=== PATIENT | male | born 1955 | race Caucasian/White ===

== ENCOUNTER 2016-09-30 12:14 | Outpatient (CLI) | payer BC | END 2016-09-30 12:15 | disposition home or self-care (01) | DX: G50.0 Trigeminal neuralgia (principal) ==

== ENCOUNTER 2018-12-15 09:33 | Outpatient (CLI) | payer OTHER ==
[2018-12-15 09:53] LABS: BASOPHILS % (AUTO) 0.9 %; EOSINOPHILS # (AUTO) 0.2 10^3/uL (0.0-0.7); EOSINOPHILS % (AUTO) 3.6 %; HGB - HEMOGLOBIN 14.2 g/dL (14.0-18.0); LYMPHOCYTES # (AUTO) 1.8 10^3/uL (1.5-3.5); LYMPHOCYTES % (AUTO) 32.2 %; MEAN CORPUSCULAR HEMOGLOBIN 28.6 pg (27.0-31.0); MEAN CORPUSCULAR HGB CONC 32.9 g/dL (32.0-36.0); MEAN PLATELET VOLUME 7.6 fL (7.4-11.4); MONOCYTES # (AUTO) 0.6 10^3/uL (0.0-1.0); MONOCYTES % (AUTO) 10.4 %; NEUTROPHILS # (AUTO) 2.9 10^3/uL (1.5-6.6); NEUTROPHILS % (AUTO) 52.9 %; PLT - PLATELET COUNT 210 10^3/uL (130-450); RED BLOOD COUNT 4.97 10^6/uL (4.70-6.10); RED CELL DISTRIBUTION WIDTH 13.8 % (12.0-15.0); WHITE BLOOD COUNT 5.5 x10^3/uL (4.8-10.8)
[2018-12-15 10:11] LABS: ALBUMIN 3.9 g/dL (3.2-5.5); ALBUMIN/GLOBULIN RATIO 1.2 (1.0-2.2); ALKALINE PHOSPHATASE 54 IU/L (42-121); ALT ALANINE AMINOTRANSFERASE 22 IU/L (10-60); AST ASPARTATE AMINOTRANSFERASE 18 IU/L (10-42); BILIRUBIN,TOTAL 0.8 mg/dL (0.2-1.0); BUN - BLOOD UREA NITROGEN 19 mg/dL (6-20); CALCIUM 9.3 mg/dL (8.5-10.3); CARBON DIOXIDE - CO2 28 mmol/L (21-32); CHLORIDE 102 mmol/L (101-111); CHOL/HDL RATIO 4.7 (<5.0); CHOLESTEROL 257 mg/dL; CREATININE 1.1 mg/dL (0.6-1.2); GFR - MDRD 67 (>89); GLUCOSE 104 mg/dL (70-100); HB2 TOTAL 15.8 g/dL; HDL CHOLESTEROL 55 mg/dL; HEMOGLOBIN A1C 0.55 g/dL; HEMOGLOBIN A1C % 5.3 % (4.6-6.2); LDL CHOLESTEROL,CALCULATED 188 mg/dL; LDL/HDL RATIO 3.4 (<3.6); SODIUM 137 mmol/L (135-145); TOTAL PROTEIN 7.1 g/dL (6.7-8.2); VLDL CHOLESTEROL 14 mg/dL
== END 2018-12-15 09:34 | disposition home or self-care (01) ==
LOC: LAB 09:33
PROVIDERS: ATTEND Registered Nurse
DX: Z00.00 Encounter for general adult medical examination without abnormal findings (principal)
CPT/HCPCS: 36415; 80053; 80061; 83036; 83721; 84443; 85025; 86704

== ENCOUNTER 2019-03-14 09:20 | Day surgery (SDC) | payer OTHER ==
[2019-03-14] MEDS ORDERED: LACTATED RINGERS 1,000 ML IV ONE ×3 (09:23→10:04)
[2019-03-14] MEDS ORDERED: MIDAZOLAM 2 MG/2 ML VIAL IVP ONE (10:10)
[2019-03-14] MEDS ORDERED: fentaNYL 250 MCG/5 ML VIAL IVP ONE (10:10)
[2019-03-14 11:24] VITALS: BP 114/75
== END 2019-03-14 09:21 | disposition home or self-care (01) ==
LOC: SDS 09:20
PROVIDERS: ATTEND Surgery
PROC: 0DBK8ZZ Excision of Ascending Colon, Via Natural or Artificial Opening Endoscopic (ICD-10-PCS; principal; 2019-03-14 10:30)
DX: Z12.11 Encounter for screening for malignant neoplasm of colon (principal); D12.2 Benign neoplasm of ascending colon; K64.8 Other hemorrhoids; E66.9 Obesity, unspecified; Z68.30 Body mass index [BMI] 30.0-30.9, adult
CPT/HCPCS: 45380; 45385; J3010; J7120

== ENCOUNTER 2020-03-13 07:45 | Outpatient (CLI) | payer OTHER ==
[2020-03-13 11:34] LABS: BASOPHILS # (AUTO) 0.1 10^3/uL (0.0-0.1); BASOPHILS % (AUTO) 1.1 %; EOSINOPHILS # (AUTO) 0.1 10^3/uL (0.0-0.7); EOSINOPHILS % (AUTO) 2.3 %; LYMPHOCYTES # (AUTO) 1.5 10^3/uL (1.5-3.5); MEAN CORPUSCULAR HEMOGLOBIN 29.1 pg (27.0-31.0); MEAN CORPUSCULAR VOLUME 91.1 fL (80.0-94.0); MONOCYTES # (AUTO) 0.6 10^3/uL (0.0-1.0); MONOCYTES % (AUTO) 10.1 %; NEUTROPHILS # (AUTO) 3.3 10^3/uL (1.5-6.6); NEUTROPHILS % (AUTO) 59.1 %; PLT - PLATELET COUNT 234 10^3/uL (130-450); RED BLOOD COUNT 4.81 10^6/uL (4.70-6.10); RED CELL DISTRIBUTION WIDTH 13.2 % (12.0-15.0); WHITE BLOOD COUNT 5.6 x10^3/uL (4.8-10.8)
[2020-03-13 12:11] LABS: ALBUMIN 3.8 g/dL (3.2-5.5); ALBUMIN/GLOBULIN RATIO 1.1 (1.0-2.2); ALKALINE PHOSPHATASE 54 IU/L (42-121); ALT ALANINE AMINOTRANSFERASE 22 IU/L (10-60); AST ASPARTATE AMINOTRANSFERASE 18 IU/L (10-42); BILIRUBIN,TOTAL 0.6 mg/dL (0.2-1.0); BUN - BLOOD UREA NITROGEN 16 mg/dL (6-20); CALCIUM 8.9 mg/dL (8.5-10.3); CARBON DIOXIDE - CO2 26 mmol/L (21-32); CHLORIDE 105 mmol/L (101-111); CHOL/HDL RATIO 3.9 (<5.0); CHOLESTEROL 244 mg/dL; CREATININE 1.2 mg/dL (0.6-1.2); GLUCOSE 97 mg/dL (70-100); HDL CHOLESTEROL 62 mg/dL; LDL CHOLESTEROL,CALCULATED 168 mg/dL; LDL/HDL RATIO 2.7 (<3.6); SODIUM 138 mmol/L (135-145); TOTAL PROTEIN 7.2 g/dL (6.7-8.2); VLDL CHOLESTEROL 14 mg/dL
== END 2020-03-13 23:59 | disposition home or self-care (01) ==
LOC: LAB.WCP 07:45
PROVIDERS: ATTEND Nurse Practitioner
DX: Z00.00 Encounter for general adult medical examination without abnormal findings (principal); E78.2 Mixed hyperlipidemia
CPT/HCPCS: 36415; 80053; 80061; 83721; 84153; 85025

== ENCOUNTER 2020-05-21 07:47 | Outpatient (CLI) | payer MEDICARE ==
--- NOTE | 2020-05-21 13:38 | XRAY Report ---
PROCEDURE: Shoulder 3 View RT INDICATIONS: RIGHT SHOULDER PAIN TECHNIQUE: 3 views of the shoulder were acquired. COMPARISON: None. FINDINGS: Bones: No fractures or dislocations. No suspicious bony lesions. Visualized ribs appear intact. S evere acromioclavicular degenerative narrowing. Soft tissues: No suspicious soft tissue calcifications. IMPRESSION: Severe acromioclavicular degenerative narrowing. Reviewed by: Larissa Decker MD on 05/21/2020 1:37 PM PDT Approved by: Larissa Decker MD on 05/21/2020 1:37 PM PDT Station ID: [id number]
== END 2020-05-21 07:48 | disposition home or self-care (01) ==
LOC: DI.WCP 07:47
PROVIDERS: ATTEND Orthopaedic Surgery
DX: M19.011 Primary osteoarthritis, right shoulder (principal)

== ENCOUNTER 2021-02-04 07:10 | Outpatient (CLI) | payer MEDICARE ==
--- NOTE | 2021-02-04 12:35 | MRI Report ---
PROCEDURE: Shoulder RT W/O INDICATIONS: STRAIN OF RIGHT SHOULDER MUSCLE AND TENDON TECHNIQUE: Noncontrast oblique coronal T2 fast spin echo with fat saturation, oblique sagittal T1 spin echo and T2 fast spin echo with fat saturation, axial T1 spin echo and T2 fast spin echo with fat saturation t hrough the shoulder. COMPARISON: Shoulder radiographs dated 05/21/2020 . FINDINGS: Rotator cuff: Full-thickness tear of the supraspinatus tendon, measuring approximately 3.0 cm in the AP dimension a s seen on sagittal pulse sequences. There is also infraspinatus tendinopathy and partial thickness ar ticular and bursal sided tear. Interstitial tearing is also present to the musculotendinous junction. Teres minor appears intact. Subscapularis tendinopathy and thickening is present. Atrophy of the sup raspinatus muscle. Bones and bursae: No bone marrow contusions or fractures. Moderate acromioclavicular joint degeneration. The acromion demonstrates conventional anatomy, without an os acromiale. Large joint effusion is present. Capsule and soft tissues: Labrum: Circumferential blunted and amorphous appearance of the labrum likely reflecting chronic circ umferential degenerative tearing. There is adjacent spurring/ sclerosis of the glenoid rim. Biceps: Intra-articular segment of the long head biceps tendon not well seen likely indicating ruptur e. There is thickening and tendinopathy of the caudad segment below the level of the intertubercular groove. Rotator interval: Obliteration of the subcoracoid fat signal intensity. Coracohumeral ligament: Not well seen which could reflect chronic sprain or remote injury. IMPRESSION: Full-thickness rotator cuff tear as above. Atrophy of the supraspinatus muscle. Large joint effusion Circumferential degenerative tear of the labrum. Rupture of the intra-articular long head biceps tendon. Reviewed by: Quincy Duron MD on 02/04/2021 12:34 PM PDT Approved by: Quincy Duron MD on 02/04/2021 12:34 PM PDT Station ID: [id number]
== END 2021-02-04 07:11 | disposition home or self-care (01) ==
LOC: DI 07:10
PROVIDERS: ATTEND Orthopaedic Surgery
DX: M75.121 Complete rotator cuff tear or rupture of right shoulder, not specified as traumatic (principal); M25.411 Effusion, right shoulder; S43.401A Unspecified sprain of right shoulder joint, initial encounter; S46.111A Strain of muscle, fascia and tendon of long head of biceps, right arm, initial encounter

== ENCOUNTER 2021-06-25 09:18 | Outpatient (CLI) | payer MEDICARE ==
--- NOTE | 2021-06-25 09:47 | XRAY Report ---
PROCEDURE: Finger(s) LT INDICATIONS: LEFT RING FINGER PAIN TECHNIQUE: AP hand, lateral views of the left fourth finger(s) acquired. COMPARISON: None FINDINGS: Bones: Visualized osseous structures demonstrate normal alignment. There are linear lucencies involvi ng the base of the fourth finger distal phalanx and the head of the fourth finger middle phalanx. The se 2 lucencies are in close proximity to each other at the level of the distal interphalangeal joint and may represent nondisplaced fractures. There is overlying soft tissue edema. Background degenerati ve changes of the distal interphalangeal joints of the second through fifth fingers. Mild degenerativ e changes of the left thumb metacarpophalangeal joint. No suspicious bony lesions. Soft tissues: No suspicious soft tissue calcifications. IMPRESSION: Possible nondisplaced fractures involving the base of the left fourth finger distal phalanx and head of the left fourth finger middle phalanx. Polyarticular background degenerative changes of the distal interphalangeal joints of the imaged left hand as well as the metacarpophalangeal joint of the left thumb. Consider immobilization and repeat imaging in 10-14 days. Reviewed by: Ancelmo Gaona MD on 06/25/2021 9:45 AM PDT Approved by: Ancelmo Gaona MD on 06/25/2021 9:45 AM PDT Station ID: [id number]
== END 2021-06-25 23:59 ==
LOC: DI.N 09:18
PROVIDERS: ATTEND Physician Assistant
DX: M19.042 Primary osteoarthritis, left hand (principal); M18.12 Unilateral primary osteoarthritis of first carpometacarpal joint, left hand; R93.6 Abnormal findings on diagnostic imaging of limbs

== ENCOUNTER 2021-07-01 14:00 | Outpatient (CLI) | payer MEDICARE ==
--- NOTE | 2021-07-01 15:49 | XRAY Report ---
PROCEDURE: Finger(s) LT INDICATIONS: NONDISPLACED FX OF MIDDLE PHALANX OF LEFT RING FINGER TECHNIQUE: AP hand, 2 views of the left fourth digit acquired. COMPARISON: 06/25/2021 FINDINGS: Bones: There is a minimally displaced fracture of the fourth middle phalanx distally extending to th e distal interphalangeal joint. The fracture lines are more prominent compatible with bony remodeling . No definite fracture in the 4th distal phalanx. No change in alignment. Soft tissues: No suspicious soft tissue calcifications. IMPRESSION: 1. Evolving fracture of the 4th middle phalanx. Reviewed by: Reginald Morgan MD on 07/01/2021 3:47 PM PST Approved by: Reginald Morgan MD on 07/01/2021 3:47 PM PST Station ID: [id number]
== END 2021-07-01 23:59 | disposition home or self-care (01) ==
LOC: DI.N 14:00
PROVIDERS: ATTEND Physician Assistant
DX: S62.625D Displaced fracture of middle phalanx of left ring finger, subsequent encounter for fracture with routine healing (principal)

== ENCOUNTER 2021-08-02 13:30 | Outpatient (CLI) | payer MEDICARE ==
--- NOTE | 2021-08-02 16:17 | XRAY Report ---
PROCEDURE: Finger(s) LT INDICATIONS: NONDISPLACED FX OF MIDDLE PHALANX OF LEFT RING FINGER TECHNIQUE: AP hand, 2 views of the left fourth finger(s) acquired. COMPARISON: 07/31/2011 FINDINGS: Previously seen fracture of left fourth middle phalanx is redemonstrated. The degree of dis placement has increased. There is some lytic resorption of bone adjacent to the fracture line. IMPRESSION: Redemonstration of left fourth middle phalanx fracture with widening of the fracture line and increas ed displacement. Reviewed by: Silver Melo MD on 08/02/2021 4:15 PM PST Approved by: Silver Melo MD on 08/02/2021 4:15 PM PST Station ID: [id number]
== END 2021-08-02 23:59 | disposition home or self-care (01) ==
LOC: DI.N 13:30
PROVIDERS: ATTEND Physician Assistant
DX: S62.625A Displaced fracture of middle phalanx of left ring finger, initial encounter for closed fracture (principal)

== ENCOUNTER 2022-07-08 13:40 | Outpatient (CLI) | payer MEDICARE | END 2022-07-08 13:41 | disposition critical access hospital (66) | LOC: EMS 13:40 | DX: R07.81 Pleurodynia (principal); W20.8XXA Other cause of strike by thrown, projected or falling object, initial encounter; Y93.89 Activity, other specified; Y92.009 Unspecified place in unspecified non-institutional (private) residence as the place of occurrence of the external cause | CPT/HCPCS: A0425; A0429 ==

== ENCOUNTER 2022-07-08 13:51 | Emergency (ER) | payer MEDICARE ==
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
[2022-07-08] MEDS ORDERED: KETOROLAC 15 MG/ML VIAL IVP STA (14:07)
[2022-07-08] MEDS ORDERED: iohexoL-300 100 ML VIAL ONE (14:11)
[2022-07-08 14:30] LABS: BASOPHILS # (AUTO) 0.1 10^3/uL (0.0-0.1); BASOPHILS % (AUTO) 0.6 %; EOSINOPHILS # (AUTO) 0.2 10^3/uL (0.0-0.7); EOSINOPHILS % (AUTO) 1.9 %; HCT - HEMATOCRIT 40.8 % (42.0-52.0); HGB - HEMOGLOBIN 13.6 g/dL (14.0-18.0); LYMPHOCYTES # (AUTO) 1.2 10^3/uL (1.5-3.5); LYMPHOCYTES % (AUTO) 14.3 %; MEAN CORPUSCULAR HEMOGLOBIN 29.6 pg (27.0-31.0); MEAN CORPUSCULAR HGB CONC 33.3 g/dL (32.0-36.0); MEAN CORPUSCULAR VOLUME 88.7 fL (80.0-94.0); MEAN PLATELET VOLUME 9.8 fL (7.4-11.4); MONOCYTES # (AUTO) 0.6 10^3/uL (0.0-1.0); NEUTROPHILS # (AUTO) 6.4 10^3/uL (1.5-6.6); NEUTROPHILS % (AUTO) 74.1 %; PLT - PLATELET COUNT 235 10^3/uL (130-450); RED CELL DISTRIBUTION WIDTH 12.9 % (12.0-15.0); WHITE BLOOD COUNT 8.6 x10^3/uL (4.8-10.8)
[2022-07-08 14:36] LABS: CALCIUM 9.3 mg/dL (8.5-10.3); CREATININE 1.1 mg/dL (0.6-1.2); POTASSIUM 4.5 mmol/L (3.5-5.0)
[2022-07-08] MEDS ORDERED: iohexoL-300 100 ML VIAL IVP ONE (15:29)
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
[2022-07-08] MEDS ORDERED: ACETAMINOPHEN 325 MG TABLET PO STA (18:45)
[2022-07-08] MEDS ORDERED: HYDROmorphone 0.5 MG/0.5 ML SYRINGE IVP STA (18:46)
[2022-07-08] MEDS ORDERED: LACTATED RINGERS 1,000 ML IV STA (18:46)
[2022-07-08 19:00] LABS: HGB - HEMOGLOBIN 13.9 g/dL (14.0-18.0)
[2022-07-08 19:03] VITALS: BP 133/87
== END 2022-07-08 20:13 | disposition short-term general hospital (02) ==
LOC: EDUNIT# → ED 13:51
DX: S36.029A Unspecified contusion of spleen, initial encounter (principal); S22.43XA Multiple fractures of ribs, bilateral, initial encounter for closed fracture; S27.329A Contusion of lung, unspecified, initial encounter; W20.8XXA Other cause of strike by thrown, projected or falling object, initial encounter; Y93.89 Activity, other specified; Y92.008 Other place in unspecified non-institutional (private) residence as the place of occurrence of the external cause; Z20.822 Contact with and (suspected) exposure to COVID-19
CPT/HCPCS: 12001; 36415; 71260; 80048; 85014; 85018; 85025; 87635; 93005; 96361; 96374; 96375; 99285; 99291; A9270; J1170; J7120; Q9967

== ENCOUNTER 2024-03-12 06:36 | Outpatient (CLI) | payer MEDICARE ==
--- NOTE | 2024-03-12 10:55 | XRAY Report ---
PROCEDURE: Shoulder 2+V LT INDICATIONS: L SHOULDER PAIN TECHNIQUE: 3 views of the shoulder were acquired. COMPARISON: None. FINDINGS: Bones: Osteopenia. No fracture or subluxation is seen. Old healed rib fractures are noted. Soft tissues: No suspicious soft tissue calcifications. IMPRESSION: No acute osseous abnormality. Old healed rib fractures. Reviewed by: Issac Vera MD on 03/12/2024 10:54 AM PDT Approved by: Issac Vera MD on 03/12/2024 10:54 AM PDT Station ID: [id number]
== END 2024-03-12 06:37 | disposition home or self-care (01) ==
LOC: DI 06:36
PROVIDERS: ATTEND Physician Assistant
DX: M25.512 Pain in left shoulder (principal); G89.29 Other chronic pain; S22.49XD Multiple fractures of ribs, unspecified side, subsequent encounter for fracture with routine healing